=== PATIENT | female | born 1945 | race Caucasian/White ===

== ENCOUNTER → 2016-10-12 | Outpatient (REF) | payer BC | LOC: M LAB REF 13:00 | PROVIDERS: ATTEND Physician Assistant | DX: N39.0 Urinary tract infection, site not specified (principal) ==

== ENCOUNTER → 2016-11-09 | Outpatient (CLI) | payer BC, MEDICARE, SELFPAY ==
[2016-11-09 07:20] LABS: MEAN CORPUSCULAR HGB CONC 31.9 g/dl (32.0-36.5); MEAN CORPUSCULAR VOLUME 81.5 fl (80.0-96.0); RED CELL DISTRIBUTION WIDTH 15.1 % (11.5-14.5); WHITE BLOOD COUNT 8.9 K/mm3 (4.0-10.0)
[2016-11-09 07:57] LABS: ALBUMIN 2.4 GM/DL (3.2-5.2); ALBUMIN/GLOBULIN RATIO 0.55 (1.00-1.93); ALKALINE PHOSPHATASE 351 U/L (45-117); ALT/SGPT 22 U/L (12-78); ANION GAP 10 MEQ/L (8-16); AST/SGOT 54 U/L (15-37); BILIRUBIN,TOTAL 0.4 MG/DL (0.2-1.0); BLOOD UREA NITROGEN 15 MG/DL (7-18); CALCIUM LEVEL 8.3 MG/DL (8.8-10.2); CARBON DIOXIDE LEVEL 26 MEQ/L (21-32); CHLORIDE LEVEL 100 MEQ/L (98-107); CHOLESTEROL LEVEL 192 MG/DL (<200); CREATININE FOR GFR 0.72 MG/DL (0.55-1.02); GLOMERULAR FILTRATION RATE > 60.0 (>39); GLUCOSE, FASTING 128 MG/DL (83-110); POTASSIUM SERUM 4.3 MEQ/L (3.5-5.1); SODIUM LEVEL 136 MEQ/L (136-145); TOTAL PROTEIN 6.8 GM/DL (6.4-8.2); TRIGLYCERIDES LEVEL 138 MG/DL (<150)
--- NOTE | 2016-11-09 08:06 | REP ---
Clinical: Pain and decreased range of motion. Technique: Internal rotation, external rotation, and Y view of the left shoulder. Findings: Early advanced osteoarthritic degenerative changes include diffuse heterogeneity as well as cortical irregularity and spurring at the acromioclavicular joint and bulky osteophyte formation along the anteroinferior margin of the humeral head. No acute fracture dislocation. Small periarticular calcifications adjacent to the glenoid rim cannot be excluded. Impression: Early advanced osteoarthritic degenerative changes. Signed by Douglas Thompson MD 11/09/2016 07:58 A
--- NOTE | 2016-11-09 08:07 | REP ---
Technique: PA and lateral. Comparison: None. Findings: Mild cardiomegaly. Lung dick demonstrate diffuse chronic interstitial changes. Superimposed acute process cannot be excluded and should be correlated with physical examination. No obvious effusion. No pneumothorax. Skeletal structures demonstrate osteopenia and degenerative changes. Impression: Chronic-appearing changes. No prior exams for comparison. If the patient asymptomatic, chest CT may be warranted for further investigation. Signed by Douglas Thompson MD 11/09/2016 07:59 A
--- NOTE | 2016-11-09 08:09 | REP ---
Technique: AP and lateral views of the left humerus. Findings: Advanced arthritic degenerative changes at the shoulder noted moderate degenerative changes at the elbow identified. No acute fracture dislocation. Surrounding soft tissues unremarkable. Impression: Degenerative changes at the shoulder and elbow. Signed by Douglas Thompson MD 11/09/2016 08:00 A
--- NOTE | 2016-11-10 18:19 | ECGEPIP ---
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
== END ==
LOC: M LAB 06:04
PROVIDERS: ATTEND Family Medicine
DX: D64.9 Anemia, unspecified (principal); R53.83 Other fatigue

== ENCOUNTER 2016-11-30 01:52 | Inpatient (IN) | payer MEDICARE ==
[~2016-11-30] VITALS: Ht 160 cm; Wt 62.0 kg
[2016-11-30] MEDS ORDERED: ALIVTAB3 PO (02:08)
[2016-11-30] MEDS ORDERED: VITA200028 PO (02:08)
[2016-11-30] MEDS ORDERED: FERR325T69 PO (02:08)
[2016-11-30 03:49] LABS: BASO % 0.2 % (0.0-1.0); EOS # 0.3 K/mm3 (0.0-0.50); EOS % 2.3 % (0.0-3.0); LARGE UNSTAINED CELL # 0.1 K/mm3 (0.0-0.4); LARGE UNSTAINED CELL % 0.8 % (0.0-4.0); LYMPH # 1.2 K/mm3 (1.5-4.5); MEAN CORPUSCULAR HEMOGLOBIN 24.7 pg (27.0-33.0); MEAN CORPUSCULAR HGB CONC 31.5 g/dl (32.0-36.5); MEAN CORPUSCULAR VOLUME 78.3 fl (80.0-96.0); MONO # 0.5 K/mm3 (0.0-0.8); MONO % 4.2 % (0.0-5.0); NEUTROPHILS % 82.5 % (36.0-66.0); PLATELET COUNT, AUTOMATED 306 k/mm3 (150-450); WHITE BLOOD COUNT 12.1 K/mm3 (4.0-10.0)
[2016-11-30 03:57] LABS: INR 1.3
[2016-11-30 04:16] LABS: ALBUMIN 2.1 GM/DL (3.2-5.2); ALBUMIN/GLOBULIN RATIO 0.57 (1.00-1.93); ALKALINE PHOSPHATASE 417 U/L (45-117); ALT/SGPT 19 U/L (12-78); ANION GAP 11 MEQ/L (8-16); AST/SGOT 39 U/L (15-37); BILIRUBIN,DIRECT 0.2 MG/DL (0.0-0.2); BILIRUBIN,TOTAL 0.5 MG/DL (0.2-1.0); BLOOD UREA NITROGEN 10 MG/DL (7-18); CALCIUM LEVEL 8.1 MG/DL (8.8-10.2); CARBON DIOXIDE LEVEL 27 MEQ/L (21-32); CHLORIDE LEVEL 93 MEQ/L (98-107); CREATININE FOR GFR 0.48 MG/DL (0.55-1.02); GLOMERULAR FILTRATION RATE > 60.0 (>39); GLUCOSE, FASTING 119 MG/DL (83-110); POTASSIUM SERUM 3.7 MEQ/L (3.5-5.1); SODIUM LEVEL 131 MEQ/L (136-145); TOTAL PROTEIN 5.8 GM/DL (6.4-8.2)
[2016-11-30] MEDS ORDERED: FUROSEMIDE 20 MG/2 ML VIAL (J1940) IV ONE (06:45)
--- NOTE | 2016-11-30 07:47 | REP ---
Clinical: Chest pain. Comparison: 11/09/2016. Findings: Mediastinum and cardiac silhouette are within normal limits and stable. Diffuse chronic interstitial changes are again noted and similar to prior examination. There is a subtle area of increased density involving the lateral right upper lung zone and correlation with chest CT may be warranted. No effusion. No pneumothorax. Skeletal structures demonstrate degenerative changes. Impression: Chronic stable changes. Subtle increased area of opacity in the peripheral right upper lung zone may warrant chest CT follow-up. Signed by Douglas Thompson MD 11/30/2016 07:38 A
[2016-11-30] MEDS ORDERED: VITA20008 PO (08:10)
[2016-11-30] MEDS ORDERED: ONDANSETRON 4MG/2ML VIAL (J2405) IV PRN (08:30)
[2016-11-30] MEDS ORDERED: ISOVUE-370 76% 100ML VIAL (Q9967) As Ordered ONE (08:32)
[2016-11-30] MEDS ORDERED: VITAMIN D 1,000 INTERNATIONAL UNITS TABLET PO SCH (09:00)
[2016-11-30] MEDS ORDERED: ENOXAPARIN 30 MG/0.3 ML SYR (J1650) SC SCH (09:00)
[2016-11-30] MEDS: FERROUS GLUCONATE 324 MG TAB PO SCH ×2 (09:00→21:00)
--- NOTE | 2016-11-30 09:31 | REP ---
Clinical: Abnormal lung finding by chest x-ray. Technique: Axial contrast enhanced images from the thoracic inlet to the upper abdomen using 100 ml Isovue 370 intravenous contrast material with coronal and sagittal re-formations. Findings: Moderate bilateral pleural effusions are appreciated (left greater than right) with left basilar atelectasis. Peripheral right apical and left anterobasilar ill-defined ground-glass opacities suggest areas of acute pneumonia. There is an irregular area of soft tissue density in the medial right lower lobe extending from the infrahilar region (images 67 - 79) along with significant mediastinal and hilar adenopathy. Findings are concerning for malignancy and require further investigation. Underlying diffuse chronic interstitial changes and mild bronchiectasis along with bibasilar scarring noted. Thoracic aorta and heart/pericardium appear relatively normal. Impression: 1. Significant adenopathy with lymph nodes measuring up to 2 cm short axis diameter as well as ill-defined right lower lobe density measuring roughly 3.3 x 3.2 x 1.7 cm and moderate bilateral pleural effusions are concerning for malignancy. 2. Small areas of predominantly ground-glass opacities in the right upper lobe and left lower lobe may reflect areas of acute pneumonia. Signed by Douglas Thompson MD 11/30/2016 09:23 A
[2016-11-30 11:20] LABS: RETICULOCYTE % ADVIA2120 2.5 % (0.5-1.5)
[2016-11-30] MEDS ORDERED: TYLE325T5 PO (11:54)
[2016-11-30] MEDS ORDERED: DRIS50002 PO (11:54)
[2016-11-30 12:05] LABS: FOLATE 10.6 NG/ML (>5.4); VITAMIN B12 LEVEL 415 PG/ML (247-911)
[2016-11-30 12:08] LABS: PERCENT SATURATION 8.2 % (13.2-37.4); TOTAL IRON BINDING CAPACITY 183 UG/DL (250-450)
[2016-11-30 12:09] LABS: FERRITIN 1547 NG/ML (8-252)
--- NOTE | 2016-11-30 12:09 | HPEPDOC ---
General Date of Admission November 30, 2016 at 08:17 Primary Care Physician: Minnie Blakely Chief Complaint The patient is a 71-year-old female admitted with a reason for visit of Congestive Heart Failure. Source: Patient History of Present Illness 71-year-old female with a past medical history of microcytic anemia and vitamin D deficiency presented to the ER with complaints of generalized weakness and worsening shortness of breath with lower extremity edema over the last few weeks. The patient states that the fatigue/malaise has been evident for the last 6+ months. She notes that she has been feeling increasingly fatigued and was recently started on iron pills for anemia as an outpatient. In addition, the patient notes that her has been admitted to [facility] for an aortic valve replacement and she has been feeling increasingly anxious and upset by this. During this time the patient and her family members state that she has had more difficulty taking care of herself. She states that she used to be able to ambulate without any assistive devices, however over the last few weeks she states that she has started to use a cane because of increased weakness. She reports a loss of around 30 pounds over the last 1 year. The patient also notes having to sleep with 3 pillows at night because she is unable to lay flat. The patient denies any history of coronary artery disease or any complaints of chest pain, palpitations, abdominal pain, or any nausea/vomiting/diarrhea. In the ER, the patient was noted to have bibasilar rales on auscultation, and 2 + lower extremity edema. She was given 20 mg of IV Lasix, after which she reported significant improvement in her respiratory status and lower extremity edema. The patient will be admitted to the hospitalist service for further evaluation and management. Home Medications Scheduled (Alive Womens 50+) 1 Tab Tab, 1 TAB PO DAILY, (Reported) Cholecalciferol (Vitamin D3) 2,000 Unit Tab, 2,000 UNIT PO DAILY, (Reported) Ferrous Gluconate (Ferrous Gluconate) 325 Mg Tab, 325 MG PO BID, (Reported) Allergies Coded Allergies: No Known Allergies (Unverified , 11/30/16) Past Medical History Medical History As noted in HPI. Surgical History Hysterectomy, rectovaginal fistula repair Family History Mother had congestive heart failure in her 90s. 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 Review of Symptoms Other systems 10 point review of systems negative unless otherwise specified in HPI. Physical Examination General Exam: Positive: Alert, Cooperative, No Acute Distress ENT Exam: Positive: Atraumatic, Mucous membr. moist/pink Neck Exam: Negative: JVD Chest Exam: Positive: Rales (faint bibasilar rales on auscultation) Heart Exam: Positive: Rate Normal, Normal S1, Normal S2 Telemetry: Positive: No significant arrhythmia, Sinus Abdomen Exam: Positive: Soft, Negative: Tenderness Extremity Exam: Positive: Swelling (1+), Negative: Tenderness Neuro Exam: Positive: Strength at 5/5 X4 ext Psych Exam: Positive: Oriented x 3 Vital Signs Vital Signs Date Time Temp Pulse Resp B/P (MAP) Pulse Ox O2 Delivery O2 Flow Rate FiO2 11/30/16 11:14 101/58 (72) 11/30/16 11:12 88 11/30/16 10:42 99 11/30/16 08:00 95.9 18 11/30/16 04:00 Room Air Laboratory Data Labs 24H Laboratory Tests 2 11/30/16 03:41: White Blood Count 12.1H, Red Blood Count 3.44L, Hemoglobin 8.5L, Hematocrit 27.0L, Mean Corpuscular Volume 78.3L, Mean Corpuscular Hemoglobin 24.7L, Mean Corpuscular Hemoglobin Concent 31.5L, Red Cell Distribution Width 16.0H, Platelet Count 306, Neutrophils (%) (Auto) 82.5H, Lymphocytes (%) (Auto) 10.0L, Monocytes (%) (Auto) 4.2, Eosinophils (%) (Auto) 2.3, Basophils (%) (Auto) 0.2, Neutrophils # (Auto) 10.0H, Lymphocytes # (Auto) 1.2L, Monocytes # (Auto) 0.5, Eosinophils # (Auto) 0.3, Basophils # (Auto) 0.0, Large Unclassified Cells % 0.8 , Large Unclassified Cells # 0.1, Prothrombin Time 16.3H, Prothromb Time International Ratio 1.30, Activated Partial Thromboplast Time 33.6, Anion Gap 11 , Glomerular Filtration Rate > 60.0, Calcium Level 8.1L, Aspartate Amino Transf (AST/SGOT) 39H, Alanine Aminotransferase (ALT/SGPT) 19, Alkaline Phosphatase 417H, Total Bilirubin 0.5, Direct Bilirubin 0.2, Total Creatine Kinase 335H, Creatine Kinase MB 1.7, Creatine Kinase MB Relative Index 0.50, Troponin I < 0.02, Total Protein 5.8L, Albumin 2.1L, Albumin/Globulin Ratio 0.57L 11/30/16 03:42: B-Type Natriuretic Peptide 1200H 11/30/16 03:56: Urine Appearance HAZY, Urine Color YELLOW, Urine pH 6.0, Urine Specific [place] 1.005, Urine Protein NEGATIVE, Urine Glucose (UA) NEGATIVE, Urine Ketones NEGATIVE, Urine Urobilinogen 0.2, Urine Bilirubin NEGATIVE, Urine Leukocyte Esterase TRACEH, Urine Blood 2+H, Urine Nitrite NEGATIVE, Urine WBC (Auto) 2, Urine RBC (Auto) 1, Urine Hyaline Casts (Auto) 0, Urine Bacteria (Auto) 1+H, Urine Squamous Epithelial Cells 1, Urine Sperm (Auto) 11/30/16 11:09: Absolute Reticulocyte Count 79H, Percent Reticulocyte Count 2.50H, Reticulocyte Hgb Content (CHr) 27.0 CBC/BMP Laboratory Tests 11/30/16 03:41 Red Blood Count 3.44 L, Mean Corpuscular Volume 78.3 L, Mean Corpuscular Hemoglobin 24.7 L, Mean Corpuscular Hemoglobin Concent 31.5 L, Red Cell Distribution Width 16.0 H, Neutrophils (%) (Auto) 82.5 H, Lymphocytes (%) (Auto ) 10.0 L, Monocytes (%) (Auto) 4.2, Eosinophils (%) (Auto) 2.3, Basophils (%) ( Auto) 0.2, Neutrophils # (Auto) 10.0 H, Lymphocytes # (Auto) 1.2 L, Monocytes # (Auto) 0.5, Eosinophils # (Auto) 0.3, Basophils # (Auto) 0.0 Microbiology Microbiology 11/30/16 Blood Culture, Received Pending 11/30/16 Urine Culture, Received Pending Plan / VTE VTE Prophylaxis Ordered?: Yes Plan Plan Shortness of Breath possibly 2/2 Decompensated CHF, R/O Underlying Malignancy Clinical exam on presentation consistent with decompensated congestive heart failure Improvement in respiratory status s/p IV Lasix in the ED EKG with no acute ST changes, Troponin negative--Will follow up CXR noted-->Will f/u with CT Chest as there is a concern for underlying Malignancy given the patient's history 2D ECHO ordered Will start on Lasix 20mg PO daily for now, we will consider up-titration based on the patient's clinical response/volume status, ECHO results Daily Weights Monitor I/O's We will continue to monitor the patient's clinical progression Generalized Deconditioning likely 2/2 Above We will continue medical work up for underlying etiology PT eval ordered PFS consulted Microcytic Anemia Hgb noted to be 8.5 States that she has not had a colonoscopy in the past Denies sources of overt bleeding, dark stools On Ferrous Gluconate BID as an outpatient we will continue this Iron Studies, FOBT ordered No indication for transfusion at this time We will cont to monitor her hgb levels Vitamin D Def Cont Vit D supplementation DVT Prophylaxis Lovenox KEVIN HILL MD November 30, 2016 12:09
--- NOTE | 2016-11-30 14:26 | ECGEPIP ---
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
[2016-11-30 14:30] VITALS: BP 97/55
[2016-11-30] MEDS: VITAMIN D 50,000 UNITS CAPSULE (ERGOCALCIFEROL 1.25MG) PO SCH (16:42)
[2016-11-30 20:30] VITALS: BP 96/54
[2016-12-01] VITALS (9 sets, daily range): BP systolic 84–154; BP diastolic 49–62
[2016-12-01] MEDS: ACETAMINOPHEN TAB 650MG DOSE (2X325MG) PO PRN ×2 (00:26→22:37)
[2016-12-01 06:12] LABS: MEAN CORPUSCULAR HEMOGLOBIN 24.7 pg (27.0-33.0); MEAN CORPUSCULAR HGB CONC 31.8 g/dl (32.0-36.5); MEAN CORPUSCULAR VOLUME 77.7 fl (80.0-96.0); RED CELL DISTRIBUTION WIDTH 16.3 % (11.5-14.5); WHITE BLOOD COUNT 11.2 K/mm3 (4.0-10.0)
[2016-12-01 06:31] LABS: ANION GAP 10 MEQ/L (8-16); BLOOD UREA NITROGEN 12 MG/DL (7-18); CARBON DIOXIDE LEVEL 26 MEQ/L (21-32); CHLORIDE LEVEL 95 MEQ/L (98-107); CREATININE FOR GFR 0.54 MG/DL (0.55-1.02); GLOMERULAR FILTRATION RATE > 60.0 (>39); GLUCOSE, FASTING 116 MG/DL (83-110); MAGNESIUM LEVEL 2.1 MG/DL (1.8-2.4); POTASSIUM SERUM 4.1 MEQ/L (3.5-5.1); SODIUM LEVEL 131 MEQ/L (136-145)
[2016-12-01] MEDS ORDERED: FUROSEMIDE 40 MG TAB PO SCH (09:00)
[2016-12-01] MEDS: FUROSEMIDE 40 MG TAB PO SCH (09:18)
[2016-12-01] MEDS: FERROUS GLUCONATE 324 MG TAB PO SCH ×2 (09:18→21:29)
[2016-12-01] MEDS ORDERED: LIDOCAINE 1% MDV 20ML VIAL As Ordered ONE (15:42)
--- NOTE | 2016-12-01 16:41 | IPNPDOC ---
Text Note Date of Service The patient was seen on 12/01/16. NOTE Subjective: Patient is a 71 year old female with a PMHx of Microcytic anemia and Vitamin D deficiency who presented to the ER with complaints of generalized weakness and worsening SOB with LE edema over the past few weeks. She reported a weight loss of 30 lbs over 1 year. She noted that she sleep with 3 pillows at night. She denies any chest pain, cough or hemoptysis. In the ER patient was found to have symptoms of heart failure and received Lasix IV 20mg. Patient was seen and examined at the bedside. She notes that she feels much better. Her LE edema has resolved and her breathing has improved. Objective: Vitals (See below) General: Lying in bed, no acute distress, comfortable, AAOx3 HEENT: NC, AT CVS: RRR, +S1S2 Lungs: Fair air entry b/l, -w/r/r Abdomen: Soft, ND, NT, +BSx4 Extremities: +PPx4, - Edema, - Calf tenderness Assessment and plan: 1. Shortness of breath - possibly multifactorial - 2/2 component of CHF and possibly malignancy - Presented with shortness of breath and LE edema; has resolved - Physical initially revealed crackles and LE edema - improved - CXR 11/30: chronic stable changes, area of opacity in the peripheral right upper lung zone - CT chest 11/30: Mass of 3.3*3.2*1.7cm, adenopathy, pleural effusions, L scapula with pathologic fracture and destructive lesion - ECHO report pending - s/p Lasix 20mg IV; c/w Lasix 20 PO - Discussed case with Radiology and Pulmonary; the best site for biopsy is currently the Left scapula - Will order IR guided biopsy for tissue diagnosis 2. Pathological fracture of left scapula - will immobilize for now - will consider orthopedic surgery consult 3. Generalized deconditioning - c/w Physical therapy 4. Microcytic anemia - Hg has trended down from 8.5 to 7.5 - c/w Iron pills - Iron panel consistent with AOCD - FOBT pending - Ordered 1 unit PRBC transfusion 5. Vitamin D deficiency - c/w supplementation 6. DVT prophylaxis - c/w Lovenox VS,Fishbone, I+O VS, Fishbone, I+O Laboratory Tests 12/01/16 05:41 Red Blood Count 3.11 L, Mean Corpuscular Volume 77.7 L, Mean Corpuscular Hemoglobin 24.7 L, Mean Corpuscular Hemoglobin Concent 31.8 L, Red Cell Distribution Width 16.3 H, Calcium Level 8.0 L Vital Signs Date Time Temp Pulse Resp B/P (MAP) Pulse Ox O2 Delivery O2 Flow Rate FiO2 12/01/16 13:00 99.7 96 18 104/59 (74) 95 Room Air I&O- Last 24 Hours up to 6 AM 12/01/16 06:00 Intake Total 180 ml Output Total 300 ml Balance -120 ml TYRESE CANELA MD December 01, 2016 16:41
--- NOTE | 2016-12-01 17:02 | REP ---
ULTRASOUND GUIDED LEFT SCAPULAR BIOPSY: The procedure was performed under the direct supervision of Dr. Balderas. The patient has a history of a fairly large lesion in the neck of the scapula involving the base of the coracoid process and the upper portion of the lateral scapular border seen on a previous CT scan dated 11/30/2016. The risks and benefits of the procedure were explained to the patient and informed consent was obtained. The left scapular lesion was localized using ultrasound guidance. The skin was prepped and draped in a sterile fashion. 1% Xylocaine was used as a local anesthetic. Using ultrasound guidance a 19/20 gauge coaxial needle biopsy system was inserted and then advanced into the mass. 5 core biopsy samples were obtained and sent to the lab. The patient tolerated the procedure well and there were no immediate complications. Reviewed by HUANG Ha 12/01/2016 05:23 PEdited and Signed by Karan Balderas MD 12/02/2016 10:18 A
[2016-12-02] VITALS: BP 90/51
[2016-12-02 05:00] VITALS: BP 109/63
[2016-12-02 06:14] LABS: MEAN CORPUSCULAR HEMOGLOBIN 25.9 pg (27.0-33.0); MEAN CORPUSCULAR HGB CONC 32.7 g/dl (32.0-36.5); MEAN CORPUSCULAR VOLUME 79.2 fl (80.0-96.0); RED CELL DISTRIBUTION WIDTH 16.8 % (11.5-14.5); WHITE BLOOD COUNT 13.6 K/mm3 (4.0-10.0)
[2016-12-02 06:37] LABS: ANION GAP 10 MEQ/L (8-16); BLOOD UREA NITROGEN 12 MG/DL (7-18); CALCIUM LEVEL 8.1 MG/DL (8.8-10.2); CARBON DIOXIDE LEVEL 26 MEQ/L (21-32); CHLORIDE LEVEL 93 MEQ/L (98-107); CREATININE FOR GFR 0.51 MG/DL (0.55-1.02); GLOMERULAR FILTRATION RATE > 60.0 (>39); GLUCOSE, FASTING 124 MG/DL (83-110); MAGNESIUM LEVEL 2.1 MG/DL (1.8-2.4); POTASSIUM SERUM 4.3 MEQ/L (3.5-5.1); SODIUM LEVEL 129 MEQ/L (136-145)
[2016-12-02 08:00] VITALS: BP 103/54
[2016-12-02] MEDS: FERROUS GLUCONATE 324 MG TAB PO SCH ×2 (08:22→20:49)
[2016-12-02] MEDS: FUROSEMIDE 40 MG TAB PO SCH (08:23)
[2016-12-02] MEDS: AZITHROMYCIN INJ 500 MG, VIAL MATE ADAPTER 1 EACH in D5W 250 ML IV SCH (08:23)
[2016-12-02] MEDS ORDERED: PREVNAR 13 VACCINE SYRINGE (CPT CODE:90670) IM ONE (09:00)
[2016-12-02] MEDS: cefTRIAXone SOD 1 GM in D5W MINI-BAG PLUS 50 ML IV SCH (10:33)
[2016-12-02] MEDS ORDERED: PREVNAR 13 VACCINE SYRINGE (CPT CODE:90670) IM SCH (12:30)
[2016-12-02 13:25] VITALS: BP 93/58
--- NOTE | 2016-12-02 15:16 | IPNPDOC ---
Text Note Date of Service The patient was seen on 12/02/16. NOTE Subjective: Patient is a 71 year old female with a PMHx of Microcytic anemia and Vitamin D deficiency who presented to the ER with complaints of generalized weakness and worsening SOB with LE edema over the past few weeks. She reported a weight loss of 30 lbs over 1 year. She noted that she sleep with 3 pillows at night. She denies any chest pain, cough or hemoptysis. In the ER patient was found to have symptoms of heart failure and received Lasix IV 20mg. Patient was seen and examined at the bedside. She notes that her breathing has improved, but her shoulder is still in pain. Objective: Vitals (See below) General: Lying in bed, no acute distress, comfortable, AAOx3 HEENT: NC, AT CVS: RRR, +S1S2 Lungs: Fair air entry b/l, -w/r/r Abdomen: Soft, ND, NT, +BSx4 Extremities: +PPx4, - Edema, - Calf tenderness Assessment and plan: 1. s/p Shortness of breath - possibly multifactorial - 2/2 component of CHF, possibly malignancy, possibly Community acquire pneumonia - Presented with shortness of breath and LE edema; has resolved - Physical initially revealed crackles and LE edema - improved - CXR 11/30: chronic stable changes, area of opacity in the peripheral right upper lung zone - CT chest 11/30: Mass of 3.3*3.2*1.7cm, adenopathy, pleural effusions, L scapula with pathologic fracture and destructive lesion - ECHO report pending - s/p Lasix 20mg IV; c/w Lasix 20 PO - c/w Ceftriaxone and Azithromycin (Day #2) 2. Possibly malignancy - likely etiology is lung primary - Discussed case with Radiology and Pulmonary; best site for biopsy is currently the Left scapula - s/p IR guided core biopsy of left scapula; samples sent to pathology; likely available on Monday - Discussed case with Dr. Agustin - will see the patient and follow up as an outpatient for treatment plan 3. Pathological fracture of left scapula - will immobilize for now with sling - Discussed with orthopedic surgery (Dr. Osvaldo John); currently no additional interventions are required - Will have patient follow up as an outpatient - c/w OT 4. Generalized deconditioning - c/w Physical therapy 5. Microcytic anemia - Hg has trended down from 8.5 to 7.5 - c/w Iron pills - Iron panel consistent with AOCD - FOBT pending - Ordered 1 unit PRBC transfusion 6. Vitamin D deficiency - c/w supplementation 7. DVT prophylaxis - c/w Lovenox VS,Fishbone, I+O VS, Fishbone, I+O Laboratory Tests 12/01/16 16:40 12/02/16 05:57 Red Blood Count 3.59 L, Mean Corpuscular Volume 79.2 L, Mean Corpuscular Hemoglobin 25.9 L, Mean Corpuscular Hemoglobin Concent 32.7, Red Cell Distribution Width 16.8 H, Calcium Level 8.1 L Vital Signs Date Time Temp Pulse Resp B/P (MAP) Pulse Ox O2 Delivery O2 Flow Rate FiO2 12/02/16 13:25 98.7 94 18 93/58 (70) 91 Room Air I&O- Last 24 Hours up to 6 AM 12/02/16 06:00 Intake Total 790 ml Output Total 450 ml Balance 340 ml TYRESE CANELA MD December 02, 2016 15:16
[2016-12-02] MEDS: ACETAMINOPHEN TAB 650MG DOSE (2X325MG) PO PRN (20:49)
--- NOTE | 2016-12-02 21:33 | ECHO ---
DATE OF PROCEDURE: 11/30/2016 DATE OF : 1945 AGE: 71 REFERRING PROVIDER: Dr. Brody Peng PATIENT LOCATION: Room 3222 REASON FOR THE ECHOCARDIOGRAM: Heart failure, unspecified. 2D MEASUREMENTS: IVS: 0.83 cm LV: 5.7 cm LVPW: 0.86 cm LA: 4.0 cm Aorta: 2.6 cm IVC: 1.9 cm DOPPLER MEASUREMENTS: Peak velocity across the aortic valve: 1.6 m/s Peak velocity across the LVOT: 0.69 m/s Mitral E: 1.5, Mitral A: 1.3 with a ratio of 1.1 Maximum tricuspid valve velocity: 2.1 m/s 2D COMMENTS: 1. Normal left ventricular wall thickness with mildly enlarged left ventricle and mildly to moderately depressed global left ventricular systolic function. The apex appeared to be markedly hypokinetic as well as the posterior wall. The estimated global left ventricular systolic ejection fraction is about 40%. 2. Borderline enlarged left atrium. Normal right atrium and right ventricle. 3. The atrial septum appeared to be normal without evidence of defect or shunt. 4. Normal aortic root. 5. No pericardial effusion seen. 6. Mildly calcified aortic valve, leaflet excursion appeared to be minimally restricted. Mildly calcified mitral annulus with normal anterior mitral valve leaflet motion. Normal tricuspid valve and pulmonic valve. The proximal pulmonary artery branches also appear to be normal. 7. The inferior vena cava was normal in size, central venous pressure might be normal. DOPPLER: It detects trace aortic regurgitation, moderately severe mitral regurgitation, mild tricuspid regurgitation. The calculated pulmonary artery systolic pressure was normal. Assessment of the left ventricular diastolic function also appeared to be normal. Abnormal relaxation pattern was noted across the septal and lateral mitral valve annulus. IMPRESSION: 1. Mild to moderate global left ventricular systolic dysfunction with regional wall motion abnormalities consistent with underlying coronary artery disease. There were features of left ventricular diastolic dysfunction, a pseudo-normal pattern. 2. Aortic valve sclerosis with trivial aortic stenosis and trace aortic regurgitation. 3. Moderately severe mitral regurgitation with mitral annulus calcification and borderline enlarged left atrium. 4. Mild tricuspid regurgitation with a normal pulmonary artery systolic pressure. 5. Incidentally, a small liver cyst was noted. MTDD
[2016-12-02 22:00] VITALS: BP 136/62
[2016-12-03 06:00] VITALS: BP 117/69
[2016-12-03 06:02] LABS: MEAN CORPUSCULAR HEMOGLOBIN 25.7 pg (27.0-33.0); MEAN CORPUSCULAR HGB CONC 32.2 g/dl (32.0-36.5); MEAN CORPUSCULAR VOLUME 79.7 fl (80.0-96.0)
[2016-12-03 06:12] LABS: ANION GAP 10 MEQ/L (8-16); BLOOD UREA NITROGEN 11 MG/DL (7-18); CALCIUM LEVEL 8.2 MG/DL (8.8-10.2); CARBON DIOXIDE LEVEL 27 MEQ/L (21-32); CHLORIDE LEVEL 92 MEQ/L (98-107); GLOMERULAR FILTRATION RATE > 60.0 (>39); GLUCOSE, FASTING 114 MG/DL (83-110); MAGNESIUM LEVEL 1.9 MG/DL (1.8-2.4); POTASSIUM SERUM 4.1 MEQ/L (3.5-5.1); SODIUM LEVEL 129 MEQ/L (136-145)
[2016-12-03 08:25] VITALS: BP 128/65
[2016-12-03] MEDS: AZITHROMYCIN INJ 500 MG, VIAL MATE ADAPTER 1 EACH in D5W 250 ML IV SCH (08:25)
[2016-12-03] MEDS: FUROSEMIDE 40 MG TAB PO SCH (08:25)
[2016-12-03] MEDS: FERROUS GLUCONATE 324 MG TAB PO SCH ×2 (08:25→19:37)
[2016-12-03] MEDS: cefTRIAXone SOD 1 GM in D5W MINI-BAG PLUS 50 ML IV SCH (09:50)
--- NOTE | 2016-12-03 12:33 | IPNPDOC ---
Text Note Date of Service The patient was seen on 12/03/16. NOTE Subjective: Patient is a 71 year old female with a PMHx of Microcytic anemia and Vitamin D deficiency who presented to the ER with complaints of generalized weakness and worsening SOB with LE edema over the past few weeks. She reported a weight loss of 30 lbs over 1 year. She noted that she sleep with 3 pillows at night. She denies any chest pain, cough or hemoptysis. In the ER patient was found to have symptoms of heart failure and received Lasix IV 20mg. Patient was seen and examined at the bedside. She denies any shortness of breath or cough, she does note a post-nasal drip. She reports that her left shoulder pain is dull and persistent. She denies any other problems at this time. Objective: Vitals (See below) General: Lying in bed, no acute distress, comfortable, AAOx3 HEENT: NC, AT CVS: RRR, +S1S2 Lungs: Fair air entry b/l, -w/r/r Abdomen: Soft, ND, NT, +BSx4 Extremities: +PPx4, - Edema, - Calf tenderness Assessment and plan: 1. s/p Shortness of breath - possibly multifactorial - 2/2 component of CHF, possibly malignancy, possibly Community acquire pneumonia - Presented with shortness of breath and LE edema; has resolved - Currently physical does not reveal crackles / rhonchi, remains afebrile - Increase in leukocytosis; will continue to monitor - CXR 11/30: chronic stable changes, area of opacity in the peripheral right upper lung zone - CT chest 11/30: Mass of 3.3*3.2*1.7cm, adenopathy, pleural effusions, L scapula with pathologic fracture and destructive lesion - ECHO 12/02: EF of 40%; Diastolic dysfunction grade 1; Moderate-severe mitral regurgitation - Sputum culture pending - s/p Lasix 20mg IV; c/w Lasix 20 PO - c/w Ceftriaxone and Azithromycin (Day #3) 2. Possibly malignancy - likely etiology is lung primary - Discussed case with Radiology and Pulmonary; best site for biopsy is currently the Left scapula - s/p IR guided core biopsy of left scapula; samples sent to pathology; likely available on Monday - Oncology (Dr. Agustin) on consult; has discussed case with patient; will determine plan after pathology results available 3. Pathological fracture of left scapula - will immobilize for now with sling - Discussed with orthopedic surgery (Dr. Osvaldo John); currently no additional interventions are required - Will have patient follow up as an outpatient - c/w OT 4. Generalized deconditioning - c/w Physical therapy 5. Microcytic anemia - Hg has trended down; but now stable - FOBT positive - Iron panel consistent with AOCD - s/p 1 unit PRBC - c/w Iron pills - will need outpatient follow up with Surgery / GI for colonoscopy / EGD 6. Vitamin D deficiency - c/w supplementation 7. DVT prophylaxis - c/w Lovenox VS,Fishbone, I+O VS, Fishbone, I+O Laboratory Tests 12/03/16 05:32 Red Blood Count 3.64 L, Mean Corpuscular Volume 79.7 L, Mean Corpuscular Hemoglobin 25.7 L, Mean Corpuscular Hemoglobin Concent 32.2, Red Cell Distribution Width 17.0 H, Calcium Level 8.2 L Vital Signs Date Time Temp Pulse Resp B/P (MAP) Pulse Ox O2 Delivery O2 Flow Rate FiO2 12/03/16 09:30 Room Air 12/03/16 06:00 98.1 87 17 117/69 (85) 97 I&O- Last 24 Hours up to 6 AM 12/03/16 06:00 Intake Total 720 ml Output Total 200 ml Balance 520 ml TYRESE CANELA MD December 03, 2016 12:33
[2016-12-03 14:00] VITALS: BP 112/65
[2016-12-03] MEDS: ACETAMINOPHEN TAB 650MG DOSE (2X325MG) PO PRN (19:37)
--- NOTE | 2016-12-03 21:35 | CR ---
DATE OF CONSULTATION: 12/03/2016 REASON FOR CONSULTATION: Pathologic fracture of left scapula. HISTORY OF PRESENT ILLNESS: She is a very pleasant 71-year-old female who was in her usual state of health until about a month ago, when she remembers taking a fall, landing onto her right side. She remembers jarring, what she describes, her left side, having soreness and pain in that left shoulder. There was an x-ray done as an outpatient, demonstrating some arthritis, but she continued to have generalized soreness as well as weakness and also noted that over the last year she has been having some weight loss of almost 30 pounds, and she eventually presented to the emergency room on 12/01/2016 with some shortness of breath, generalized fatigue, and weakness with pitting edema in her ankles and diagnosed with congestive heart failure and then eventually with some pneumonia, and then on a chest x-ray it appeared there was a tumor in her right lobe that was evaluated by CT scanning, revealing, indeed, a large mass in the right lower lobe with hilar adenopathy, and incidentally noted was a tumor with pathologic fracture of the left scapular neck region. Since she has fallen, she has been unable to elevate that left arm up over head and has been feeling markedly weak. Prior to this fall, she said she could elevate her arm up over head. She does not complain of tingling or numbness in her upper extremities or her lower extremities. Does not complain normally of low back or upper back or neck pain, although she has been sitting around a lot recently and since the hospitalization has developed some soreness in her low back but nothing chronically. 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 Otherwise, she is fairly healthy and active. MEDICATIONS: Vitamin D and ferrous gluconate. ALLERGIES: No known drug allergies. SURGICAL HISTORY: As mentioned, which is a hysterectomy and rectovaginal fistula repair. SOCIAL HISTORY: She does not smoke or drink alcohol. She has three children. She is . Her is recently recovering from aortic valve replacement at [facility]. He now resides at the [facility]. She lives here locally in [place]. Has healthy children. REVIEW OF SYSTEMS: Otherwise unremarkable. PHYSICAL EXAMINATION: When I examine her, she is a very pleasant female. She complains of inability to elevate that left arm at the shoulder with some pain she describes diffusely about the left shoulder girdle but mainly posteriorly. VITAL SIGNS: Today, temperature of 98, pulse 87, respirations 17, blood pressure 128/65, oxygen saturations are 97% on room air. HEENT: Relatively benign. She could bend and straighten her neck and rotate her neck without neck discomfort. Right upper extremity she could elevate up over head. There is no pain, tenderness, or deformity noted over her right upper extremity. Left side, however, had posterior tenderness with some fullness noted about the glenohumeral joint line posteriorly. Anteriorly there is no tenderness over the coracoid. There is no obvious swelling of the shoulder otherwise in the anterior part of her shoulder, and she basically had a pseudoparalysis, unable to elevate her shoulder or flex or abduct. She could only internally rotate to about the greater trochanter with pain. Elbow function was intact, and she had good pronation and supination of the forearm, flexion and extension ability of the wrists, abduction and ability of the hands, and normal sensation. Good capillary refill of her fingers and a good radial pulse. Lower extremities: She could do straight leg raising bilaterally with good strength. No pain or irritability with internal or external rotation of either hip. No swelling of the knees, ankles, or feet. Pitting edema that was described on admission seems to be resolved. The radiographs were reviewed. Her chest x-ray is showing some vague opacities in the right lung field. The CT scan reviewed, showing the mass in the lower right lung lobe with some perihilar adenopathy, and one could see a fairly robust pathologic fracture of the scapular neck that is somewhat permeative and suspicious for an aggressive process. She also has some associated glenohumeral arthritis and acromioclavicular (AC) joint arthritis. Her CBC showed a white count today of 29, white count of 15, and platelets 284. Sodium of 129, potassium 4.1, chloride 92, bicarbonate 27, BUN 11, creatinine 0.5, glucose 114. Recently, Dr. Guthrie has performed a core biopsy, radiographically guided biopsy, and its pathologic soft tissue diagnosis is pending. IMPRESSION: 1. A 71-year-old otherwise healthy female with a new diagnosis that is very suspicious for a metastatic malignancy, possible primary lung. 2. A left pathologic scapular fracture. This appears to be pathologic based on its appearance. It is possible that there was a fracture from her fall, but it looks very suspicious radiographically that this is a malignancy, but we will await the results of the soft tissue microscopic diagnosis from the pathologist. 3. Probable large rotator cuff tear with glenohumeral arthritis, left shoulder. Will just have to treat this expectantly for the time being. I do not think there is a surgical intervention at this point that would be acutely needed until we have established the definitive diagnosis and staging for her. In the meantime, a sling can be used for comfort. I encouraged her to come out of the sling, just to keep her shoulder relatively mobilized and to prevent stiffness of the shoulder by doing some rotational workup as well as flex and extend the elbow, hand, wrist, and fingers as comfort allows. GENI
[2016-12-04 06:10] LABS: MEAN CORPUSCULAR HEMOGLOBIN 26.2 pg (27.0-33.0); MEAN CORPUSCULAR HGB CONC 32.8 g/dl (32.0-36.5); MEAN CORPUSCULAR VOLUME 79.8 fl (80.0-96.0); RED CELL DISTRIBUTION WIDTH 17.4 % (11.5-14.5); WHITE BLOOD COUNT 14.3 K/mm3 (4.0-10.0)
[2016-12-04 06:28] LABS: ANION GAP 9 MEQ/L (8-16); BLOOD UREA NITROGEN 9 MG/DL (7-18); CALCIUM LEVEL 8.4 MG/DL (8.8-10.2); CARBON DIOXIDE LEVEL 30 MEQ/L (21-32); CHLORIDE LEVEL 92 MEQ/L (98-107); CREATININE FOR GFR 0.46 MG/DL (0.55-1.02); GLOMERULAR FILTRATION RATE > 60.0 (>39); GLUCOSE, FASTING 104 MG/DL (83-110); POTASSIUM SERUM 4.3 MEQ/L (3.5-5.1); SODIUM LEVEL 131 MEQ/L (136-145)
[2016-12-04] MEDS: FERROUS GLUCONATE 324 MG TAB PO SCH ×2 (08:42→20:16)
[2016-12-04] MEDS: FUROSEMIDE 40 MG TAB PO SCH (08:42)
[2016-12-04] MEDS: AZITHROMYCIN INJ 500 MG, VIAL MATE ADAPTER 1 EACH in D5W 250 ML IV SCH (08:42)
[2016-12-04] MEDS: cefTRIAXone SOD 1 GM in D5W MINI-BAG PLUS 50 ML IV SCH (09:54)
--- NOTE | 2016-12-04 10:52 | IPNPDOC ---
Text Note Date of Service The patient was seen on 12/04/16. NOTE Subjective: Patient is a 71 year old female with a PMHx of Microcytic anemia and Vitamin D deficiency who presented to the ER with complaints of generalized weakness and worsening SOB with LE edema over the past few weeks. She reported a weight loss of 30 lbs over 1 year. She noted that she sleep with 3 pillows at night. She denies any chest pain, cough or hemoptysis. In the ER patient was found to have symptoms of heart failure and received Lasix IV 20mg. Patient was seen and examined at the bedside. She reports that she has provided a sputum sample and is not coughing as much. Her pain in her shoulder continues. Will continue with physical therapy. Objective: Vitals (See below) General: Lying in bed, no acute distress, comfortable, AAOx3 HEENT: NC, AT CVS: RRR, +S1S2 Lungs: Fair air entry b/l, -w/r/r Abdomen: Soft, ND, NT, +BSx4 Extremities: +PPx4, - Edema, - Calf tenderness Assessment and plan: 1. s/p Shortness of breath - possibly multifactorial - 2/2 component of CHF, possibly malignancy, possibly Community acquire pneumonia - Presented with shortness of breath and LE edema; has resolved - Currently physical does not reveal crackles / rhonchi, remains afebrile - Leukocytosis has stabilized - CXR 11/30: chronic stable changes, area of opacity in the peripheral right upper lung zone - CT chest 11/30: Mass of 3.3*3.2*1.7cm, adenopathy, pleural effusions, L scapula with pathologic fracture and destructive lesion - ECHO 12/02: EF of 40%; Diastolic dysfunction grade 1; Moderate-severe mitral regurgitation - Sputum culture pending (Gram stain: many gram positive rods, few gram positive cocci) - s/p Lasix 20mg IV; c/w Lasix 20 PO - c/w Ceftriaxone and Azithromycin (Day #4) 2. Possibly malignancy - likely etiology is lung primary - Discussed case with Radiology and Pulmonary; best site for biopsy is currently the Left scapula - s/p IR guided core biopsy of left scapula - Pathology pending; likely available on Monday - Oncology (Dr. Agustin) on consult; has discussed case with patient; will determine plan after pathology results available 3. Pathological fracture of left scapula - will immobilize with sling for comfort PRN - Discussed with orthopedic surgery (Dr. Osvaldo John); currently no additional interventions are required - Will have patient follow up as an outpatient - c/w PT/OT 4. Generalized deconditioning - c/w Physical therapy 5. Microcytic anemia - Hg has trended down; but now stable - FOBT positive - Iron panel consistent with AOCD - s/p 1 unit PRBC - c/w Iron pills - will need outpatient follow up with Surgery / GI for colonoscopy / EGD 6. Vitamin D deficiency - c/w supplementation 7. DVT prophylaxis - c/w Lovenox Disposition: - Awaiting clearance from physical therapy / occupational therapy - Awaiting improvement in leukocytosis for CAP - c/w Abx - Pathology results / Oncology follow up VS,Fara, I+O VS, Fara I+O Laboratory Tests 12/04/16 05:48 Red Blood Count 3.66 L, Mean Corpuscular Volume 79.8 L, Mean Corpuscular Hemoglobin 26.2 L, Mean Corpuscular Hemoglobin Concent 32.8, Red Cell Distribution Width 17.4 H, Calcium Level 8.4 L Vital Signs Date Time Temp Pulse Resp B/P (MAP) Pulse Ox O2 Delivery O2 Flow Rate FiO2 12/03/16 19:30 Room Air 12/03/16 14:00 97.0 89 18 112/65 (81) 95 I&O- Last 24 Hours up to 6 AM 12/04/16 05:59 Intake Total 1020 ml Output Total 0 ml Balance 1020 ml TYRESE CANELA MD December 04, 2016 10:52
[2016-12-04 14:00] VITALS: BP 92/56
[2016-12-04] MEDS: ACETAMINOPHEN TAB 650MG DOSE (2X325MG) PO PRN (20:17)
[2016-12-05] MEDS: ACETAMINOPHEN TAB 650MG DOSE (2X325MG) PO PRN ×2 (05:48→23:53)
[2016-12-05 05:52] LABS: MEAN CORPUSCULAR HEMOGLOBIN 26.1 pg (27.0-33.0); MEAN CORPUSCULAR HGB CONC 32.8 g/dl (32.0-36.5); MEAN CORPUSCULAR VOLUME 79.5 fl (80.0-96.0); RED CELL DISTRIBUTION WIDTH 17.7 % (11.5-14.5); WHITE BLOOD COUNT 14.7 K/mm3 (4.0-10.0)
[2016-12-05 06:13] LABS: ANION GAP 7 MEQ/L (8-16); BLOOD UREA NITROGEN 8 MG/DL (7-18); CALCIUM LEVEL 8.2 MG/DL (8.8-10.2); CARBON DIOXIDE LEVEL 29 MEQ/L (21-32); CHLORIDE LEVEL 90 MEQ/L (98-107); CREATININE FOR GFR 0.47 MG/DL (0.55-1.02); GLOMERULAR FILTRATION RATE > 60.0 (>39); GLUCOSE, FASTING 126 MG/DL (83-110); POTASSIUM SERUM 4.3 MEQ/L (3.5-5.1); SODIUM LEVEL 126 MEQ/L (136-145)
[2016-12-05] MEDS ORDERED: AZITHROMYCIN 250 MG TAB PO SCH (09:00)
[2016-12-05] MEDS: FUROSEMIDE 20 MG TAB PO SCH (09:00)
[2016-12-05] MEDS: cefTRIAXone SOD 1 GM in D5W MINI-BAG PLUS 50 ML IV SCH (09:10)
[2016-12-05] MEDS: FERROUS GLUCONATE 324 MG TAB PO SCH ×2 (09:10→20:31)
[2016-12-05 10:01] LABS: FREE T4 1.07 NG/DL (0.76-1.46)
[2016-12-05 10:02] LABS: CORTISOL AM 28.1 UG/DL (4.3-22.4)
--- NOTE | 2016-12-05 10:56 | IPNPDOC ---
Text Note Date of Service The patient was seen on 12/05/16. NOTE Subjective: Patient is a 71 year old female with a PMHx of Microcytic anemia and Vitamin D deficiency who presented to the ER with complaints of generalized weakness and worsening SOB with LE edema over the past few weeks. She reported a weight loss of 30 lbs over 1 year. She noted that she sleep with 3 pillows at night. She denies any chest pain, cough or hemoptysis. In the ER patient was found to have symptoms of heart failure and received Lasix IV 20mg. Patient was seen and examined at the bedside. She reports that she is still persistently weak. She is awaiting additional physical therapy. Objective: Vitals (See below) General: Lying in bed, no acute distress, comfortable, AAOx3 HEENT: NC, AT CVS: RRR, +S1S2 Lungs: Fair air entry b/l, -w/r/r Abdomen: Soft, ND, NT, +BSx4 Extremities: +PPx4, - Edema, - Calf tenderness Assessment and plan: 1. s/p Shortness of breath - possibly multifactorial - 2/2 component of CHF, possibly malignancy, possibly Community acquire pneumonia - Presented with shortness of breath and LE edema; has resolved - Currently physical does not reveal crackles / rhonchi, remains afebrile - Leukocytosis has stabilized - CXR 11/30: chronic stable changes, area of opacity in the peripheral right upper lung zone - CT chest 11/30: Mass of 3.3*3.2*1.7cm, adenopathy, pleural effusions, L scapula with pathologic fracture and destructive lesion - ECHO 12/02: EF of 40%; Diastolic dysfunction grade 1; Moderate-severe mitral regurgitation - Sputum culture pending (Gram stain: many gram positive rods, few gram positive cocci) - s/p Lasix 20mg IV - c/w Ceftriaxone and Azithromycin (Day #5) 2. Possibly malignancy - likely etiology is lung primary - Discussed case with Radiology and Pulmonary; best site for biopsy is currently the Left scapula - s/p IR guided core biopsy of left scapula - Pathology pending; likely available on Monday - Oncology (Dr. Agustin) on consult; has discussed case with patient; will determine plan after pathology results available 3. Hyponatremia, hypotonic - appears euvolemic / mild hypervolemia - Possibly 2/2 SIADH - Will get Urine osmolality, urine electrolytes - Will fluid restrict for now - Will give restart Lasix - Will get CMP at 1300PM 4. Pathological fracture of left scapula - will immobilize with sling for comfort PRN - Discussed with orthopedic surgery (Dr. Osvaldo John); currently no additional interventions are required - Will have patient follow up as an outpatient - c/w PT/OT 5. Generalized deconditioning - c/w Physical therapy 6. Microcytic anemia - Hg has trended down; but now stable - FOBT positive - Iron panel consistent with AOCD - s/p 1 unit PRBC - Outpatient follow up with Surgery / GI for colonoscopy / EGD - c/w Iron pills 7. Vitamin D deficiency - c/w supplementation 8. DVT prophylaxis - c/w Lovenox Disposition: - Awaiting clearance from physical therapy / occupational therapy - Continue treatment of pneumonia - Workup of hyponatremia - likely SIADH - Pathology results / Oncology follow up - results for Tomorrow / Dr. Agustin for plan VS,Anastasiiae, I+O VS, Anastasiiae, I+O Laboratory Tests 12/05/16 05:41 Red Blood Count 3.58 L, Mean Corpuscular Volume 79.5 L, Mean Corpuscular Hemoglobin 26.1 L, Mean Corpuscular Hemoglobin Concent 32.8, Red Cell Distribution Width 17.7 H, Calcium Level 8.2 L Vital Signs Date Time Temp Pulse Resp B/P (MAP) Pulse Ox O2 Delivery O2 Flow Rate FiO2 12/05/16 08:45 Room Air 12/04/16 14:00 99.5 95 17 92/56 (39) 92 I&O- Last 24 Hours up to 6 AM 12/05/16 06:00 Intake Total 1140 ml Output Total 525 ml Balance 615 ml TYRESE CANELA MD December 05, 2016 10:56
[2016-12-05] MEDS: CEFEPIME HCL 1 GM in D5W MINI-BAG PLUS 50 ML IV SCH ×2 (12:48→23:54)
[2016-12-05 13:07] LABS: ANION GAP 8 MEQ/L (8-16); BLOOD UREA NITROGEN 8 MG/DL (7-18); CALCIUM LEVEL 8.7 MG/DL (8.8-10.2); CARBON DIOXIDE LEVEL 30 MEQ/L (21-32); CHLORIDE LEVEL 88 MEQ/L (98-107); CREATININE FOR GFR 0.48 MG/DL (0.55-1.02); GLOMERULAR FILTRATION RATE > 60.0 (>39); GLUCOSE, FASTING 138 MG/DL (83-110); POTASSIUM SERUM 3.8 MEQ/L (3.5-5.1); SODIUM LEVEL 126 MEQ/L (136-145)
[2016-12-05 14:00] VITALS: BP 94/58
[2016-12-05 22:00] VITALS: BP 116/67
[2016-12-06 06:00] VITALS: BP 113/64
[2016-12-06 06:12] LABS: MEAN CORPUSCULAR HEMOGLOBIN 25.6 pg (27.0-33.0); MEAN CORPUSCULAR HGB CONC 32.4 g/dl (32.0-36.5); WHITE BLOOD COUNT 15.1 K/mm3 (4.0-10.0)
[2016-12-06 06:25] LABS: ANION GAP 9 MEQ/L (8-16); BLOOD UREA NITROGEN 9 MG/DL (7-18); CALCIUM LEVEL 8.1 MG/DL (8.8-10.2); CARBON DIOXIDE LEVEL 29 MEQ/L (21-32); CHLORIDE LEVEL 88 MEQ/L (98-107); CREATININE FOR GFR 0.43 MG/DL (0.55-1.02); GLOMERULAR FILTRATION RATE > 60.0 (>39); GLUCOSE, FASTING 113 MG/DL (83-110); SODIUM LEVEL 126 MEQ/L (136-145)
[2016-12-06] MEDS ORDERED: FUROSEMIDE 40 MG/4 ML VIAL (J1940) IV ONE (08:00)
[2016-12-06] MEDS ORDERED: SODIUM CHLORIDE 1 GM TAB PO SCH (09:00)
[2016-12-06] MEDS: FERROUS GLUCONATE 324 MG TAB PO SCH ×2 (09:45→21:46)
[2016-12-06] MEDS: SODIUM CHLORIDE 1 GM TAB PO SCH ×3 (09:45→17:55)
[2016-12-06] MEDS: NAFCILLIN SOD 2 GM in D5W MINI-BAG PLUS 100 ML IV SCH ×3 (09:46→21:47)
--- NOTE | 2016-12-06 12:29 | IPN ---
DATE OF SERVICE: 12/06/2016 She complains of generalized weakness, pain at the right shoulder. No palpitations, lightheadedness. No shortness of breath. No confusion, headaches, changes in vision. Temperature 98.9, pulse 93, respiratory rate 19, blood pressure 113/64, 91% on room air. Generally, awake, alert, oriented times three. Pupils reactive to light and accommodation. Extraocular movements are intact. Normocephalic, atraumatic. Heart: S1, S2, sinus rhythm. No murmurs, rubs, or gallops. Lungs are clear to auscultation. No wheezing, rales, or rhonchi. Abdomen: Soft, nontender, nondistended. Positive bowel sounds. Extremities: No cyanosis, clubbing, or any pitting edema. Left shoulder has tenderness at the glenohumeral joint. Unable to elevate her shoulder or flex or abduct at that area. Elbow was intact. Pronation and supination of the forearm, flexion and extension of the wrist, abduction, normal sensation. Good capillary refill and radial pulses. LABORATORY DATA, MICROBIOLOGY, IMAGING STUDIES: Have been reviewed. ASSESSMENT AND PLAN: This is a 71-year-old female. No significant past medical history. Presented with shortness of breath. Found to have a metastatic malignancy, potentially from primary lung, with a left pathologic scapular fracture and large rotator cuff tear with glenohumeral arthritis of the left shoulder. The patient was evaluated by orthopedic surgery with recommendations for a sling for comfort, out of sling for rotational workup. Core biopsy performed. Pathology pending the left. CURRENT ISSUES: 1. Respiratory distress secondary to possible lung malignancy. Awaiting pathology. 2. Congestive heart failure (CHF) with effusions. Diurese with Lasix and possible pneumonia with sputum culture growing Staphylococcus aureus, sensitive to oxacillin. The patient had completed 5 days of ceftriaxone and azithromycin with persistently elevated white count. Afebrile. 3. Possible lung malignancy. Awaiting pathology report from interventional radiology guided core biopsy of the left scapula. Oncologist, Dr. Taylor, has been consulted. Discussed the case with the patient. At this time, the patient feels that she is not a chemotherapy candidate due to persistent weakness, unable to ambulate. 4. Hyponatremia, hypotonic, syndrome of inappropriate secretion of antidiuretic hormone (SIADH), most likely. Fluids restriction, Lasix and salt tablets. 5. Pathologic fracture of the left scapula, per Dr. Suggs, sling for comfort, nonweightbearing. 6. Generalized deconditioning. Continue with physical therapy. Most likely, not a candidate for chemotherapy secondary to severe deconditioning and poor functional status. 7. Anemia of chronic disease, status post 1 unit of red blood cell transfusion. Fecal occult blood positive. Continue with iron pills for now. 8. Vitamin D deficiency. Supplementation. 9. Deep venous thrombosis (DVT) prophylaxis with Lovenox. DISPOSITION: The patient is exhibiting poor functional status, most likely not a candidate for chemotherapy. Defer to Dr. Taylor, medical oncologist, to determine if the patient should be staged with CT abdomen and pelvis. CT of the brain to evaluate for treatment, particularly possible radiation to the pathologic fracture of the left scapula.
[2016-12-06 12:59] LABS: ANION GAP 10 MEQ/L (8-16); BLOOD UREA NITROGEN 10 MG/DL (7-18); CALCIUM LEVEL 8.2 MG/DL (8.8-10.2); CARBON DIOXIDE LEVEL 27 MEQ/L (21-32); CHLORIDE LEVEL 88 MEQ/L (98-107); CREATININE FOR GFR 0.52 MG/DL (0.55-1.02); GLOMERULAR FILTRATION RATE > 60.0 (>39); GLUCOSE, FASTING 131 MG/DL (83-110); POTASSIUM SERUM 3.8 MEQ/L (3.5-5.1); SODIUM LEVEL 125 MEQ/L (136-145)
[2016-12-06 14:00] VITALS: BP 120/66
--- NOTE | 2016-12-06 14:10 | REP ---
Chest two views HISTORY: Shortness of breath Comparison: 11/30/2016 A diffuse increase in interstitial markings is present in the lungs consistent with chronic interstitial fibrosis. Small bilateral pleural effusions are present. The cardiac silhouette is enlarged. The pulmonary vasculature is normal in appearance. The bony structure is intact. IMPRESSION: 1. Chronic interstitial fibrosis. 2. Small bilateral pleural effusions. 3. Cardiomegaly. Signed by Hu Akins MD 12/06/2016 02:02 P
[2016-12-06] MEDS ORDERED: GASTROGRAFIN SOLUTION 30ML PO ONE (14:15)
[2016-12-06] MEDS ORDERED: GASTROGRAFIN SOLUTION 30ML (Q9963) PO ONE (14:45)
[2016-12-06] MEDS ORDERED: ISOVUE-370 76% 100ML VIAL (Q9967) As Ordered ONE (15:39)
--- NOTE | 2016-12-06 17:20 | REP ---
CT ABDOMEN AND PELVIS WITH AND WITHOUT CONTRAST: TECHNIQUE: Axial noncontrast images through the abdomen followed by contrast-enhanced images through the abdomen and pelvis using 100 mL Isovue 370 intravenous contrast material, with coronal and sagittal reformations. The visualized lung bases demonstrate large bilateral pleural effusions with adjacent atelectasis/infiltrate. The liver demonstrates two heterogeneously enhancing nodules, one in the right lobe measuring about 2.7 cm in diameter and another more inferiorly in the right lobe 1.1 cm in diameter. There is focal fatty infiltration along the fissure for the ligamentum teres. The spleen is unremarkable. Adrenal glands are mildly thickened containing multiple calcifications. The pancreas is unremarkable. There is a cyst in the lower pole of the right kidney. There is no hydronephrosis. There is no abdominal aortic aneurysm with mild to moderate atherosclerotic calcifications. Extensive periaortic adenopathy is present as well as mildly enlarged lymph nodes in the portal region adjacent to the pancreatic head. A cluster of adenopathy is seen in the right lower quadrant mesentery. There is adjacent diffuse thickening of the cecum which has the appearance of a cecal mass. The adjacent terminal ileum is thickened. Wall thickening extends into the mid aspect of the right colon. A large cystic structure is seen between the stomach and liver measuring 5.5 cm in diameter. Mild abdominal and pelvic ascites is noted. The urinary bladder is moderately distended and grossly unremarkable. The patient appears to have had a hysterectomy. There are several sigmoid diverticula present. There are diffuse degenerative changes of the spine. There appears to be sludge or tiny calculi in the gallbladder. IMPRESSION: Diffuse thickening of the cecum, I suspect presents a mass with extension into the mid right colon. There is also a thickening of the terminal ileum. There is a cluster of adenopathy in the adjacent right lower quadrant mesentery. There is also extensive periaortic adenopathy and portal adenopathy. Two liver nodules may represent metastatic lesions. There is mild abdominal and pelvis ascites. Signed by Joe Burr MD 12/08/2016 07:01 P
[2016-12-06 18:12] LABS: ANION GAP 8 MEQ/L (8-16); BLOOD UREA NITROGEN 11 MG/DL (7-18); CALCIUM LEVEL 7.7 MG/DL (8.8-10.2); CARBON DIOXIDE LEVEL 30 MEQ/L (21-32); CHLORIDE LEVEL 86 MEQ/L (98-107); CREATININE FOR GFR 0.59 MG/DL (0.55-1.02); GLOMERULAR FILTRATION RATE > 60.0 (>39); GLUCOSE, FASTING 144 MG/DL (83-110); POTASSIUM SERUM 3.4 MEQ/L (3.5-5.1); SODIUM LEVEL 124 MEQ/L (136-145)
[2016-12-06 18:31] LABS: CARCINOEMBRYONIC ANTIGEN 73.4 NG/ML (<2.5)
[2016-12-06] MEDS ORDERED: POTASSIUM CHLORIDE 10 MEQ SR TABLET PO ONE (20:00)
[2016-12-06] MEDS: ACETAMINOPHEN TAB 650MG DOSE (2X325MG) PO PRN (21:51)
[2016-12-06 22:00] VITALS: BP 105/63
[2016-12-07 00:15] LABS: ANION GAP 7 MEQ/L (8-16); BLOOD UREA NITROGEN 10 MG/DL (7-18); CALCIUM LEVEL 7.9 MG/DL (8.8-10.2); CARBON DIOXIDE LEVEL 29 MEQ/L (21-32); CHLORIDE LEVEL 89 MEQ/L (98-107); CREATININE FOR GFR 0.52 MG/DL (0.55-1.02); GLOMERULAR FILTRATION RATE > 60.0 (>39); GLUCOSE, FASTING 127 MG/DL (83-110); POTASSIUM SERUM 3.7 MEQ/L (3.5-5.1); SODIUM LEVEL 125 MEQ/L (136-145)
[2016-12-07] MEDS: NAFCILLIN SOD 2 GM in D5W MINI-BAG PLUS 100 ML IV SCH ×4 (04:13→21:00)
[2016-12-07 06:00] VITALS: BP 111/64
[2016-12-07 06:19] LABS: MEAN CORPUSCULAR HEMOGLOBIN 25.7 pg (27.0-33.0); MEAN CORPUSCULAR HGB CONC 32.7 g/dl (32.0-36.5); MEAN CORPUSCULAR VOLUME 78.6 fl (80.0-96.0); RED CELL DISTRIBUTION WIDTH 18.3 % (11.5-14.5); WHITE BLOOD COUNT 13.6 K/mm3 (4.0-10.0)
[2016-12-07 06:43] LABS: ANION GAP 10 MEQ/L (8-16); BLOOD UREA NITROGEN 9 MG/DL (7-18); CALCIUM LEVEL 8.1 MG/DL (8.8-10.2); CARBON DIOXIDE LEVEL 29 MEQ/L (21-32); CHLORIDE LEVEL 88 MEQ/L (98-107); CREATININE FOR GFR 0.42 MG/DL (0.55-1.02); GLOMERULAR FILTRATION RATE > 60.0 (>39); GLUCOSE, FASTING 119 MG/DL (83-110); SODIUM LEVEL 127 MEQ/L (136-145); URIC ACID 3.2 MG/DL (2.6-6.0)
[2016-12-07 08:31] LABS: OSMOLALITY SERUM 258 MOSM/KG (280-301)
[2016-12-07] MEDS ORDERED: CARVedilol 3.125 MG TAB PO SCH (09:00)
[2016-12-07 09:20] LABS: CHOLESTEROL LEVEL 160 MG/DL (<200); TRIGLYCERIDES LEVEL 133 MG/DL (<150)
[2016-12-07] MEDS ORDERED: LORazepam 1 MG TAB PO PRN (09:30)
[2016-12-07] MEDS ORDERED: ATROPINE SULFATE 1% OP SOLN 2 ML BTL SL PRN (09:30)
[2016-12-07] MEDS ORDERED: SCOPOLAMINE 1.5 MG TRANSDERMAL TD PRN (09:30)
[2016-12-07] MEDS: FERROUS GLUCONATE 324 MG TAB PO SCH (09:56)
[2016-12-07] MEDS: VITAMIN D 50,000 UNITS CAPSULE (ERGOCALCIFEROL 1.25MG) PO SCH (09:56)
[2016-12-07] MEDS: MORPHINE 10MG/0.5ML ORAL CONCENTRATE SOLUTION U/D SL PRN (13:39)
--- NOTE | 2016-12-07 14:32 | IPN ---
DATE: 12/07/2016 The patient is seen and examined at the bedside. Chart has been reviewed. This morning, the patient has refused further testing, specialist care, and would like to be comfort measures only. CT of the abdomen and pelvis yesterday showed a cecal mass with thickening along the right colon. General surgeon, Dr. Baron, was initially consulted. The patient has decided no further treatment. The patient's sodium level is improved to 127 with discontinuation of Lasix. She appears to be euvolemic and denies any complaints of chest pain, pressure , tightness, shortness of breath, palpitations, lightheadedness, or dizziness. Complains of generalized fatigue. PHYSICAL EXAMINATION: VITAL SIGNS: Temperature 98.9, pulse 86, respiratory rate 18, blood pressure 111/64, 94% on room air. GENERAL: The patient is awake, alert, oriented times three. Answering questions appropriately. Anicteric sclerae. No jaundice. No jugular venous distention (JVD). LUNGS: Clear to auscultation. No wheezes, rales, or rhonchi. HEART: S1, S2, sinus rhythm. ABDOMEN: Soft, nontender, nondistended. Positive bowel sounds. EXTREMITIES: No pitting edema. NEUROLOGIC: The patient has 4/5 bilateral lower extremities, 5/5 bilateral upper extremities. LABORATORY DATA: CBC, metabolic panel have been reviewed. Microbiology for sputum culture, Staphylococcus aureus, yeast-like organism, resistant to penicillin. Currently on IV nafcillin. ASSESSMENT AND PLAN: This is a 71-year-old female with no significant past medical history who presented to the emergency room with shortness of breath. Found to have new onset congestive heart failure (CHF), as well as a lung mass and a pathologic fracture in the left scapula and large rotator cuff tear with glenohumeral arthritis of the left shoulder. Core biopsy showed adenocarcinoma and likely to be lung as primary. CURRENT ISSUES: 1. 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 She has refused further workup, specialist care, and would like to be comfort measures only. Per Dr. Mia Alvarez, adenocarcinoma, most likely GI in nature. The patient is currently refusing bone scan, CT of the head, surgical consult for colonoscopy and biopsy. 2. Congestive heart failure (CHF), new onset, secondary to severe mitral regurgitation, ejection fraction of 40%, refusing medications and further treatment and evaluation. She is current DO NOT RESUSCITATE, DO NOT INTUBATE and refusing medications. Therefore she is comfort measures only with Ativan, morphine, scopolamine patch and atropine as needed. 3. Staphylococcus aureus pneumonia. The patient is agreeable to continuing antibiotics for comfort. She is currently on nafcillin. Sputum culture shows resistance to penicillin G, but sensitivity to oxacillin. DISPOSITION: The patient's is currently in rehabilitation due to recent valve replacement. I have spoken with the patient's son, Daniel, from [place], [place], phone number is [phone] and [phone]. He is agreeable with the current plan with respecting the mother's wishes to be DO NOT RESUSCITATE, DO NOT INTUBATE, comfort measures only, no active treatment, evaluation or specialist care. Patient and family services (PFS) has been consulted, as well as hospice and cancer navigation services.
[2016-12-07] MEDS ORDERED: SIMVASTATIN 40 MG TAB PO SCH (21:00)
[2016-12-08] MEDS: NAFCILLIN SOD 2 GM in D5W MINI-BAG PLUS 100 ML IV SCH ×2 (02:24→08:51)
[2016-12-08] MEDS: MORPHINE 10MG/0.5ML ORAL CONCENTRATE SOLUTION U/D SL PRN (12:48)
--- NOTE | 2016-12-08 15:14 | IPN ---
DATE: 12/08/2016 The patient is seen and examined. The chart has been reviewed. This morning the patient appears improved sitting on a chair, smile on her face. She noted some dysphagia when she ate her spaghetti and choked slightly. She was able to eat her chun but with some difficulty this morning. She does not want any further evaluation and wanted her IV nafcillin to be discontinued and her IV to be removed. The patient noted that the pain on the left scapula improved with one dose of Roxanol and she is able to lift it around the shoulder. No complaints of chest pain, pressure or tightness. No dyspnea. No fever or chills. Cough is present but no significant sputum production. The patient has been maintained on comfort measures only, DO NOT INTUBATE, DO NOT RESUSCITATE. Temperature 98.8, pulse 86, respiratory rate 18, blood pressure is 111/64, 94% on room air. Generally, awake, alert oriented times three answering questions appropriately. Lungs: Diminished breath sounds at the bases. Very fine crackles bilaterally. Heart: S1, S2 sinus rhythm. Apical murmur systolic ejection murmur at the apex radiating to the axilla and posteriorly to the left thorax, base of the neck, high pitched. Abdomen is soft, nontender, nondistended. Positive bowel times four quadrants. No hepatosplenomegaly. Extremities: Trace edema. ASSESSMENT/PLAN: This is a 71-year-old female with no past medical history who presents to the emergency room with shortness of breath and was found to have new onset congestive heart failure, ejection fraction of 40%, lung mass and pathologic fractures in the left scapula and large rotator cuff tear with glenohumeral arthritis of the left shoulder. Core biopsy of the left scapula yielded adenocarcinoma unlikely not from a primary lung. Recommendations was to due a full GI workup. CEA was elevated. The patient was also treated for pneumonia and grew out Staphylococcus aureus, switched over to IV nafcillin with improvement in white count to 13,000 from a peak of 15.1. Due to the multiorgan issues with pulmonary edema, severe MR, EF of 40%, metastatic disease to the lungs, liver and bone, the patient refused staging and further workup. She refused colonoscopy with biopsy and currently comfort measures only, DO NOT RESUSCITATE, DO NOT INTUBATE. She has refused all medications aside from Roxanol, Ativan as needed, scopolamine and atropine. She is currently awaiting placement. The patient's son and family are involved in her care. Patient/Family services have been consulted, hospice referral and cancer navigation services. She remains comfort measures only, DO NOT INTUBATE DO NOT RESUSCITATE.
[2016-12-09] MEDS: MORPHINE 10MG/0.5ML ORAL CONCENTRATE SOLUTION U/D SL PRN (14:03)
--- NOTE | 2016-12-09 16:22 | IPN ---
DATE: 12/09/2016 SUBJECTIVE: The patient is seen and examined at the bedside. Chart has been reviewed. The patient complains to have problems with dysphagia to solids. Unable to eat chun and salad yesterday despite cutting it into small pieces. She states that she is slightly short of breath but is refusing Lasix or resumption of her antibiotics. Roxanol works well. She is able to lift her left arm better than four days ago. OBJECTIVE: VITAL SIGNS: Temperature 98.8, pulse 86, respiratory rate 18, blood pressure 111/64. GENERAL: Awake, alert, and oriented times three. Answers questions appropriately. LUNGS: Diminished breath sounds. Crackles bilaterally at the bases. HEART: S1, S2. Sinus. Apical murmur, systolic ejection at the apex radiating to axilla posteriorly to the left thorax and high-pitched. ABDOMEN: Soft, nontender, nondistended. Positive bowel sounds times four quadrants. No hepatosplenomegaly. EXTREMITIES: Trace edema. ASSESSMENT AND PLAN: A 71-year-old female with no past medical history presented to the emergency room (ER) with shortness of breath, found to have new-onset congestive heart failure (CHF), ejection fraction (EF) 40%, lung mass, pathologic fracture left scapula, large rotator cuff tear with glenohumeral arthritis of the left shoulder, core biopsy of the left scapula yielded adenocarcinoma and likely not from a primary lung. Recommendation was to do a full gastrointestinal (GI) workup. CA was elevated, was treated for pneumonia, grew out Staphylococcus aureus, switched her over to intravenous (IV) nafcillin with improvement in her white count 13,000 from a peak of 15.1. Due to multiorgan issues with pulmonary edema, severe MR, CHF, metastasis-type lesions to the liver, bone and lungs with ejection fraction of 40%. The patient refused further staging and workup, refused colonoscopy with biopsy, and requested comfort measures only. She is currently DO NOT RESUSCITATE/DO NOT INTUBATE. Refused all medications aside from Roxanol, Ativan as needed, scopolamine, and atropine. Currently awaiting hospice house placement. The patient's son and family are involved in her care. Patient and family services (PFS) has been consulted, hospice referral, and cancer navigation services. GENI
[2016-12-10] MEDS: MORPHINE 10MG/0.5ML ORAL CONCENTRATE SOLUTION U/D SL PRN ×2 (06:46→20:07)
[2016-12-10] MEDS ORDERED: MORP1SOL PO (08:19)
[2016-12-10] MEDS ORDERED: ATRO1OPD PO (08:19)
[2016-12-10] MEDS ORDERED: LORA1TAB12 PO (08:19)
--- NOTE | 2016-12-10 13:10 | IPN ---
DATE: 12/10/2016 Patient is seen and examined at the bedside. This morning has no new complaints. Shortness of breath is stable. Still refusing to take Lasix. She is COMFORT MEASURES ONLY. Plans are for discharge to hospice house on Monday. Patient is awake, alert, oriented times three, answering questions appropriately. Lungs: Diminished breath sounds at the bases with fine crackles. Heart: S1, S2, sinus rhythm. Abdomen is soft nontender and nondistended. Positive bowel sounds. Extremities: No cyanosis, clubbing or pitting edema. No laboratory data. ASSESSMENT AND PLAN: This is a 71-year-old female presented to the emergency room with shortness of breath, found to have new-onset congestive heart failure (CHF), ejection fraction (EF) 40%, lung mass, pathologic fracture left scapula, large rotator cuff tear with glenohumeral arthritis of the left shoulder, core biopsy of the left scapula yielded adenocarcinoma and likely not from a primary lung cancer. Recommendation was to do a full gastrointestinal (GI) workup. CEA was elevated. She was treated for pneumonia, grew out Staphylococcus aureus, switched to IV nafcillin with improvement in white count to 13,000 from peak 15. Recommendations was to perform colonoscopy with biopsy. However, patient due to multiorgan issues with pulmonary edema, severe MR, CHF, systolic dysfunction, EF of 40%, metastatic lesions to liver, bone and lungs with unknown primary with patient has refused further staging and workup, refused colonoscopy with biopsy and requested COMFORT MEASURES ONLY. She is currently DO NOT RESUSCITATE/DO NOT INTUBATE, refused all medications aside from Roxanol, Ativan as needed, scopolamine and atropine. Plans are for hospice house placement on Monday. Patient's son and family are involved in her care. Patient and family services (PFS) has been consulted, hospice referral and cancer navigation services.
[2016-12-10 14:00] VITALS: BP 113/57
[2016-12-11 06:00] VITALS: BP 98/63
--- NOTE | 2016-12-11 10:09 | IPN ---
DATE: 12/11/2016 The patient is seen and examined at the bedside. The chart has been reviewed. The patient complains of slight shortness of breath but does not want any medications for this. Appetite has been decreased secondary to dysphagia to solids. The patient has been placed on pureed diet with some improvement. PHYSICAL EXAMINATION: Temperature 98.7, pulse 100, respiratory rate 18, blood pressure is 98/63, 93% on room air. GENERAL: The patient is awake, alert, oriented times three. Answering questions appropriately. LUNGS: Diminished. Crackles at the bases. HEART: S1, S2 sinus rhythm. ABDOMEN: Soft, nontender, nondistended. Positive bowel sounds. EXTREMITIES: No pitting edema. LABORATORY DATA: No lab data. ASSESSMENT/PLAN: This is a 71-year-old female with no past medical history who presents to the emergency room with shortness of breath and was found to have new onset congestive heart failure, ejection fraction of 40%, lung mass and pathologic fracture in the left scapula and large rotator cuff tear with glenohumeral arthritis of the left shoulder. Core biopsy of the left scapula showed adenocarcinoma and likely not from a primary lung. Recommendation from medical oncology was to do a full GI workup, CEA was elevated. CA 19-9 was elevated. Colonoscopy and biopsy was refused by the patient. She was treated for pneumonia. Sputum culture grew out Staphylococcus aureus, switched to IV nafcillin with improvement in white count. Due to multiple organ issues with pulmonary edema, severe mitral regurgitation with ejection fraction of 40%, hyponatremia, metastatic lesions to the lungs, liver and bone with unknown primary with GI suspicious as the primary colon cancer with CT of the abdomen and pelvis showed cecal mass with thickening of the right side of the colon. The patient has refused further staging and workup. Refused colonoscopy with biopsy. Requested comfort measures only. Currently DO NOT RESUSCITATE, DO NOT INTUBATE. Refused all medications for heart failure, antibiotics aside from Roxanol, Ativan, and scopolamine and atropine. Plans are for transferring to hospice house on Monday. The patient's son and family are involved. Medications have been sent to [facility] pharmacy on [address]. Discharge on Monday.
[2016-12-11] MEDS: MORPHINE 10MG/0.5ML ORAL CONCENTRATE SOLUTION U/D SL PRN ×2 (14:47→17:58)
[2016-12-12] MEDS ORDERED: ATRO1OPD PO (08:23)
[2016-12-12] MEDS ORDERED: LORA1TAB12 PO ×2 (08:27→10:26)
[2016-12-12] MEDS ORDERED: MORP1SOL PO ×2 (08:29→10:26)
--- NOTE | 2016-12-12 14:43 | DSES ---
DATE OF ADMISSION: 11/30/2016 DATE OF DISCHARGE: 12/12/2016 MEDICAL CONSULTANTS: Manufacturing Engineer/oncologist: Dr. Taylor and Dr. Mia Alvarez. Orthopedic surgeon: Dr. Logan Suggs. PROCEDURES DURING THIS ADMISSION: Needle aspiration 12/01/2016. Ultrasound-guided left scapular biopsy by interventional radiology. PRIMARY DISCHARGE DIAGNOSES: 1. 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 2. Metastatic lesions to the liver, bone, and lungs. 3. Presumed postobstructive pneumonia. 4. Cecal mass, most likely malignancy. 5. New onset congestive heart failure, systolic dysfunction, ejection fraction of 40%. 6. Severe mitral regurgitation. 7. Postobstructive pneumonia with Staphylococcus aureus with methicillin-susceptible Staphylococcus aureus (MSSA). 8. Symptomatic anemia. Status post 1 unit red blood cell transfusion. 9. Large rotator cuff tear with glenohumeral arthritis of the left shoulder. FOLLOWUP ISSUES: The patient is DO NOT RESUSCITATE, DO NOT INTUBATE. Comfort measures only. DISCHARGE MEDICATIONS: - atropine 1-2 drops every 2 hours for terminal secretions - lorazepam 0.5 mg every 4 as needed for anxiety and agitation - morphine sulfate 10 mg by mouth every 2 hours as needed for dyspnea or pain HOSPITAL COURSE: This is a 71-year-old female with no past medical history who presented to the emergency room with complaints of shortness of breath. Evaluation included chest x-ray which showed pulmonary edema. She was diagnosed with new onset congestive heart failure. Echocardiogram showed severe mitral regurgitation, ejection fraction of 40%. Lung mass on the chest and left scapular bony lesion, evaluated by ultrasound-guided biopsy of the left scapula, yielded adenocarcinoma which is metastatic and poorly differentiated, most likely from a GI malignancy. The patient developed hyponatremia, responded to fluid restriction and Lasix diuresis. 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 Per Dr. Mia Alvarez, workup for GI malignancy was recommended, including CT abdomen and pelvis, as well as colonoscopy with biopsy. The patient was diuresed, and heart failure appeared to be euvolemic. She continued to have persistent diffusion bilateral lower lobes. She was treated with ceftriaxone and azithromycin for postobstructive pneumonia. Was changed to intravenous (IV) nafcillin when sputum culture grew out MSSA with improvement in white count from a peak white count of 15.5 to 13,000. At that point, the patient's hyponatremia was worsening to 124, 125, and 127 from 130 on admission, as she was being treated for presumed SIADH. Safety Scientist, Dr. Francis, and general surgeon, Dr. Baron, were initially consulted, but the patient refused to see them, citing that she would prefer not to undergo further staging in light of the fact that there are metastatic lesions to the liver, lungs, and bone, most likely the primary malignancy with a severe mitral regurgitation and EF of 40% and that she would not be a surgical candidate for either diagnoses. The patient has decided to make herself DO NOT RESUSCITATE, comfort measures only, with no further testing, laboratory data. I have had an extensive discussion with the patient's son, Daniel, from [place], [place], as well as the , Natasha Juarez. Both agree that the patient is of sound mind to make medical decisions and agree with the patient's decision despite their own personal opinion that the patient should undergo colonoscopy, biopsy, and be evaluated for chemotherapy. The patient remained in the hospital. IV nafcillin was discontinued, as was Lasix. She has decided on Roxanol, Ativan, and scopolamine for now, and atropine drops as needed. She had some improvement in pain, when she took some morphine and Roxanol, at the left scapula. She was discharged with guarded prognosis. The patient presented with symptomatic anemia and congestive heart failure with hemoglobin dropping to 7.7 and received 1 unit of red blood cell transfusion. Hemoccult positive secondary to cecal mass, right colonic mass, for which she wanted no further testing with colonoscopy, biopsy. LABORATORIES ON DISCHARGE: White count 13.6, hemoglobin 9.4, hematocrit 28.7, platelet count 244. Sodium 127, potassium 4, chloride 88, bicarbonate 29, BUN 9, creatinine 0.42, glucose 258, calcium 8.1, total CK 381, CK-MB 1.5, troponin less than 0.02, triglyceride 133, total cholesterol 160, LDL 105, non-HDL 132, CEA 73.4, CA-19-9 less than 1.2. MICROBIOLOGY: 12/03/2016 sputum culture: Staphylococcus aureus and yeast resistant to penicillin G. Hemoccult stool positive. IMAGING STUDIES: 11/30/2016. Large lesion in the neck of the scapula involving the base of the coracoid process and the upper portion of the lateral scapular border with destructive lesion along with pathologic fracture. Moderate bilateral pleural effusion, left greater than right, with left basilar atelectasis. Peripheral right apical and left anterior basilar ill-defined ground-glass opacity with acute pneumonia. right middle lobe, extension into the infrahilar region with mediastinal hilar lymphadenopathy concerning for malignancy, underlying diffuse chronic interstitial changes, mild bronchiectasis, along with bibasilar scarring. CT abdomen and pelvis: Liver demonstrates two heterogeneously enhancing nodules, one in the right lobe measuring 2.7 cm in diameter and another inferiorly in the right lower lobe 1.1 cm. Fatty infiltration along the fissure of the ligamentum teres. There is a cyst in the lower pole of the right kidney. No hydronephrosis. Extensive periaortic adenopathy, as well as mildly enlarged lymph nodes in the portal region adjacent to the pancreatic head. A cluster of adenopathy in the right lower quadrant mesentery. Adjacent diffuse thickening of the cecum with appearance of a cecal mass. Thickened terminal ileum. Wall thickening extends into the mid aspect of the right colon. A large cystic structure between the stomach and liver measuring 5.5 cm with mild abdominal and pelvic ascites. Moderately distended urinary bladder. Several sigmoid diverticula. Appears to be sludge or tiny calculi in the gallbladder. Diffuse thickening of the cecum, suspecting a mass with extension into the mid right colon. Thickening of the terminal ileum with a cluster of adenopathy in the adjacent right lower quadrant mesentery with extensive periaortic adenopathy and portal adenopathy. Two liver nodules may represent metastatic lesions with mild abdominal and pelvis ascites. TIME SPENT ON DISCHARGE: 30 minutes.
== END 2016-12-12 08:45 | disposition hospice, home (50) | DRG 987 ==
LOC: M ED 02:52 → M ED INP 08:17 → M PCU 14:30 → M MSPAV 12-02 12:59
PROVIDERS: ADMIT Internal Medicine; ATTEND General Practice
PROC: 0PB63ZX Excision of Left Scapula, Percutaneous Approach, Diagnostic (ICD-10-PCS; principal; 2016-12-01)
DX: C18.0 Malignant neoplasm of cecum (principal); I50.33 Acute on chronic diastolic (congestive) heart failure; J15.212 Pneumonia due to Methicillin resistant Staphylococcus aureus; C79.51 Secondary malignant neoplasm of bone; C78.01 Secondary malignant neoplasm of right lung; C78.7 Secondary malignant neoplasm of liver and intrahepatic bile duct; E87.1 Hypo-osmolality and hyponatremia; M84.512A Pathological fracture in neoplastic disease, left shoulder, initial encounter for fracture; R18.8 Other ascites; D50.9 Iron deficiency anemia, unspecified; I34.0 Nonrheumatic mitral (valve) insufficiency; Z66 Do not resuscitate; Z79.899 Other long term (current) drug therapy; Z51.5 Encounter for palliative care; E55.9 Vitamin D deficiency, unspecified; M19.90 Unspecified osteoarthritis, unspecified site